=== PATIENT | male | born 1975 | race Caucasian/White ===

== ENCOUNTER 2018-10-27 00:39 | Emergency (ER) | payer SELFPAY ==
[~2018-10-27] VITALS: Ht 172.7 cm; Wt 139.6 kg
[~2018-10-27 00:39] MED LIST: ABILIFY10 MG PO; ALBUTEROL SUL0.083 % IN; AMOXICILLIN500 MG PO; AUGMENTIN875 MG PO; AUGMENTIN875TAB OR; AUGMENTIN875TAB PO; BACTRIM DS1 TAB PO; DIVALPROEX250 M1 PO; FLUOXETINE10 M2 PO; FLUOXETINE10 MG PO; FLUOXETINE20 MG PO; IBUPROFEN800 MG PO; LISINOPRIL10 MG PO; MECLIZINE25 MG PO; MEDDOSEPAK PO; MOTRIN800 MG PO; MOTRIN800 MG/TAB PO; NAPROSYN500 MG PO; NAPROXEN500 MG PO; NEXIUM40 M1 PO; NORCO1 TA1 PO; OMEPRAZOLE40 MG PO; PANTOPRAZOLE SO40 MG PO; PAROXETINE20 MG PO; PRILOSEC20 MG/CAP PO; PRILOSEC40 MG PO; PROAIR HFA IN; PROZAC20 MG PO; QVAR80 MCG IN; SERTRALINE100 MG PO; TRAZODONE50 MG PO; TRIAMCINOLON0.11 EX; WELLBUTRIN100 M1 PO; ZANTAC150 M1 PO; ZOFRAN ODT4 MG PO; ZYBAN150 MG OR
[2018-10-27] MEDS ORDERED: STERAPRED DS10 MG PO (01:08)
[2018-10-27] MEDS ORDERED: TRAMADOL HCL50 MG PO (01:09)
[2018-10-27 01:48] VITALS: BP 140/82
== END 2018-10-27 01:48 | disposition home or self-care (01) | DRG 558 ==
LOC: ED 00:39
DX: M65.832 Other synovitis and tenosynovitis, left forearm (principal); I10 Essential (primary) hypertension; F17.200 Nicotine dependence, unspecified, uncomplicated

== ENCOUNTER 2018-11-11 21:52 | Emergency (ER) | payer OTHER ==
[~2018-11-11] VITALS: Ht 172.7 cm; Wt 140.0 kg
[~2018-11-11 21:52] MED LIST changes: +STERAPRED DS10 MG PO; +TRAMADOL HCL50 MG PO
[2018-11-11] MEDS ORDERED: BUPROPION HCL300 MG PO (22:06)
[2018-11-11] MEDS ORDERED: LEVOTHYROXIN50 MCG PO (22:07)
[2018-11-11] MEDS ORDERED: LORAZEPAM0.5 MG PO (22:08)
[2018-11-11 23:16] LABS: HEMATOCRIT 41.7 % (39.0-50.0); IMMATURE GRANULOCYTES 1.3 % (0.0-5.0); MEAN CELL VOLUME 86.3 fL CALC (80.0-100.0); MEAN CORPUSCULAR HGB CONC 33.6 g/L CALC (32.0-36.0); NEUT# 4.95 thou/uL (1.82-7.42); RED BLOOD COUNT 4.83 mill/uL (4.70-6.10); RED CELL DISTRI WIDTH 14.3 % (11.5-15.5)
[2018-11-11 23:32] LABS: ALKALINE PHOSPHATASE 118 u/l (38-126); ANION GAP 13 (6-22 (CALC)); BILIRUBIN, TOTAL 0.5 mg/dL (0.0-1.4); BUN 9 mg/dL (9-20); BUN/CREATININE RATIO 10 (12-20 (CALC)); CARBON DIOXIDE 25 mmol/l (22-30); CHLORIDE 103 mmol/l (95-108); CREATININE 0.9 mg/dL (0.7-1.3); GFR > 60 ML/MIN (>=60 (CALC)); GFR FOR AFR.AMER. > 60 ML/MIN (>=60 (CALC)); POTASSIUM 4.3 mmol/l (3.5-5.1); SGOT/AST 72 u/l (17-59); SODIUM 137 mmol/l (137-146); TOTAL PROTEIN 7.1 g/dL (6.3-8.2)
[2018-11-12] MEDS ORDERED: AMOXICILLIN500 MG PO (00:17)
[2018-11-12] MEDS ORDERED: CLARITIN10 M1 PO (00:17)
[2018-11-12 00:38] VITALS: BP 149/69
== END 2018-11-12 00:37 | disposition home or self-care (01) ==
LOC: ED 21:52
PROVIDERS: Emergency Medicine
DX: J02.9 Acute pharyngitis, unspecified (principal); I10 Essential (primary) hypertension; F17.200 Nicotine dependence, unspecified, uncomplicated; R50.9 Fever, unspecified; R05 Cough

== ENCOUNTER 2019-02-19 23:06 | Emergency (ER) | payer BC ==
[~2019-02-19] VITALS: Ht 172.7 cm; Wt 150.9 kg
[~2019-02-19 23:06] MED LIST changes: +BUPROPION HCL300 MG PO; +CLARITIN10 M1 PO; +LEVOTHYROXIN50 MCG PO; +LORAZEPAM0.5 MG PO
[2019-02-20 00:18] LABS: HEMATOCRIT 43.4 % (39.0-50.0); HEMOGLOBIN 14.5 g/dl (14.0-18.0); IMMATURE GRANULOCYTES 0.7 % (0.0-5.0); MEAN CELL VOLUME 84.3 fL CALC (80.0-100.0); MEAN CORPUSCULAR HGB 28.2 pG CALC (26.0-32.0); MEAN CORPUSCULAR HGB CONC 33.4 g/L CALC (32.0-36.0); NEUT# 9.25 thou/uL (1.82-7.42); RED BLOOD COUNT 5.15 mill/uL (4.70-6.10); RED CELL DISTRI WIDTH 13.7 % (11.5-15.5)
[2019-02-20 00:20] LABS: ALBUMIN 4.3 g/dL (3.2-5.0); ALKALINE PHOSPHATASE 113 u/l (38-126); AMYLASE 47 u/l (30-110); ANION GAP 16 (6-22 (CALC)); BILIRUBIN, TOTAL 0.4 mg/dL (0.0-1.4); BUN 16 mg/dL (9-20); BUN/CREATININE RATIO 17 (12-20 (CALC)); CARBON DIOXIDE 24 mmol/l (22-30); CHLORIDE 103 mmol/l (95-108); GFR > 60 ML/MIN (>=60 (CALC)); GFR FOR AFR.AMER. > 60 ML/MIN (>=60 (CALC)); LIPASE 69 u/l (23-300); POTASSIUM 3.7 mmol/l (3.5-5.1); SGOT/AST 29 u/l (17-59); SODIUM 139 mmol/l (137-146); TOTAL PROTEIN 7.9 g/dL (6.3-8.2)
[2019-02-20 01:25] LABS: URINE BILIRUBIN - DIPSTICK NEGATIVE (NEGATIVE); URINE BLOOD DIPSTICK NEGATIVE (NEGATIVE); URINE COLOR YELLOW; URINE GLUCOSE - DIPSTICK NEGATIVE (NEGATIVE); URINE KETONE NEGATIVE (NEGATIVE); URINE LEUK ESTERASE NEGATIVE (NEGATIVE); URINE NITRITE - DIPSTICK NEGATIVE (Negative); URINE PH 5.5 (4.5-8.0); URINE PROTEIN - DIPSTICK NEGATIVE (NEG-TRACE); URINE UROBILINOGEN - DIPSTICK 0.2 E.U./dL (0.2)
[2019-02-20] MEDS ORDERED: ONDANSETRON4 MG PO (01:52)
[2019-02-20] MEDS ORDERED: BACTRIM DS1 TAB PO (01:52)
[2019-02-20] MEDS ORDERED: LOMOTIL2.5 MG PO (01:52)
[2019-02-20 02:15] VITALS: BP 149/68
== END 2019-02-20 02:15 | disposition home or self-care (01) | DRG 392 ==
LOC: ED 23:06
PROVIDERS: Emergency Medicine
DX: K52.9 Noninfective gastroenteritis and colitis, unspecified (principal); I10 Essential (primary) hypertension; F17.210 Nicotine dependence, cigarettes, uncomplicated

== ENCOUNTER 2019-09-12 | Emergency (ER) | payer OTHER ==
[~2019-09-12] MED LIST changes: +LOMOTIL2.5 MG PO; +ONDANSETRON4 MG PO
[2019-09-12] MEDS ORDERED: XANAX0.25 MG PO (22:23)
[2019-09-12] MEDS ORDERED: LAMOTRIGINE100 MG PO (22:24)
[2019-09-12] MEDS ORDERED: ALBUTEROL SUL0.083 % IN (22:25)
[2019-09-12] MEDS ORDERED: ARNUITY EL50 MCG/ACT NAB (22:26)
== END 2019-09-12 23:38 | disposition home or self-care (01) ==
DX: S93.402A Sprain of unspecified ligament of left ankle, initial encounter (principal); I10 Essential (primary) hypertension; F17.200 Nicotine dependence, unspecified, uncomplicated; X50.0XXA Overexertion from strenuous movement or load, initial encounter

== ENCOUNTER 2019-09-27 05:28 | Emergency (ER) | payer OTHER ==
[~2019-09-27 05:28] MED LIST changes: +ARNUITY EL50 MCG/ACT NAB; +LAMOTRIGINE100 MG PO; +XANAX0.25 MG PO
[2019-09-27 06:07] LABS: HEMATOCRIT 41.4 % (39.0-50.0); HEMOGLOBIN 13.8 g/dl (14.0-18.0); IMMATURE GRANULOCYTES 0.5 % (0.0-5.0); MEAN CELL VOLUME 86.8 fL CALC (80.0-100.0); MEAN CORPUSCULAR HGB 28.9 pG CALC (26.0-32.0); MEAN CORPUSCULAR HGB CONC 33.3 g/dL CAL (32.0-36.0); NEUT# 7.95 thou/uL (1.82-7.42); RED BLOOD COUNT 4.77 mill/uL (4.70-6.10); RED CELL DISTRI WIDTH 13.6 % (11.5-15.5)
[2019-09-27 06:22] LABS: ALBUMIN 3.8 g/dL (3.2-5.0); ALKALINE PHOSPHATASE 113 u/l (38-126); ANION GAP 11 (6-22 (CALC)); BILIRUBIN, TOTAL 0.3 mg/dL (0.0-1.4); BUN 9 mg/dL (9-20); BUN/CREATININE RATIO 10 (12-20 (CALC)); CARBON DIOXIDE 28 mmol/l (22-30); CHLORIDE 107 mmol/l (95-108); CREATININE 0.9 mg/dL (0.7-1.3); GFR > 60 ML/MIN (>=60 (CALC)); GFR FOR AFR.AMER. > 60 ML/MIN (>=60 (CALC)); POTASSIUM 4.4 mmol/l (3.5-5.1); SGOT/AST 25 u/l (17-59); SODIUM 142 mmol/l (137-146); TOTAL PROTEIN 7.2 g/dL (6.3-8.2)
[2019-09-27] MEDS ORDERED: BACTRIM DS1 TAB PO (06:49)
[2019-09-27] MEDS ORDERED: TRAMADOL HYDROC50 MG PO (06:51)
[2019-09-27] MEDS ORDERED: VOLTAREN - GENE75 MG PO (06:51)
[2019-09-27 07:25] VITALS: BP 132/55
== END 2019-09-27 07:25 | disposition home or self-care (01) ==
LOC: ED 05:28
PROVIDERS: Family Medicine
DX: S93.402A Sprain of unspecified ligament of left ankle, initial encounter (principal); L03.116 Cellulitis of left lower limb; I10 Essential (primary) hypertension; F17.200 Nicotine dependence, unspecified, uncomplicated; X50.0XXA Overexertion from strenuous movement or load, initial encounter

== ENCOUNTER 2020-12-26 23:05 | Emergency (ER) | payer OTHER ==
[~2020-12-26 23:05] MED LIST changes: +TRAMADOL HYDROC50 MG PO; +VOLTAREN - GENE75 MG PO
[2020-12-27] MEDS ORDERED: DOXYCYC MONO100 M2 PO (20:18)
== END 2020-12-26 23:56 | disposition left against medical advice (07) | DRG 951 ==
LOC: ED 23:05 → LWOBS 23:56
DX: Z53.21 Procedure and treatment not carried out due to patient leaving prior to being seen by health care provider (principal)

== ENCOUNTER 2020-12-27 17:01 | Emergency (ER) | payer OTHER ==
[~2020-12-27] VITALS: Ht 172.7 cm; Wt 120.1 kg
[2020-12-27 19:54] LABS: URINE BILIRUBIN - DIPSTICK NEGATIVE (NEGATIVE); URINE BLOOD DIPSTICK NEGATIVE (NEGATIVE); URINE COLOR YELLOW; URINE GLUCOSE - DIPSTICK NEGATIVE (NEGATIVE); URINE KETONE NEGATIVE (NEGATIVE); URINE LEUK ESTERASE NEGATIVE (NEGATIVE); URINE PH 5.5 (4.5-8.0); URINE PROTEIN - DIPSTICK NEGATIVE (NEG-TRACE); URINE SPECIFIC GRAVITY >=1.030; URINE UROBILINOGEN - DIPSTICK 0.2 E.U./dL (0.2)
[2020-12-27 19:55] LABS: URINE NITRITE - DIPSTICK NEGATIVE (Negative)
[2020-12-27] MEDS ORDERED: DOXYCYC MONO100 M2 PO (20:18)
[2020-12-27 20:57] VITALS: BP 155/93
== END 2020-12-27 21:06 | disposition home or self-care (01) ==
LOC: ED 17:01
PROVIDERS: Emergency Medicine
DX: Z20.2 Contact with and (suspected) exposure to infections with a predominantly sexual mode of transmission (principal); I10 Essential (primary) hypertension; K21.9 Gastro-esophageal reflux disease without esophagitis; F41.9 Anxiety disorder, unspecified; F17.200 Nicotine dependence, unspecified, uncomplicated

== ENCOUNTER 2021-02-13 23:48 | Emergency (ER) | payer OTHER ==
[~2021-02-13] VITALS: Ht 172.7 cm; Wt 132.0 kg
[~2021-02-13 23:48] MED LIST changes: +DOXYCYC MONO100 M2 PO
[2021-02-14] MEDS ORDERED: BUPROPION150 M3 PO (00:25)
[2021-02-14] MEDS ORDERED: LAMICTAL200 M1 PO (00:26)
[2021-02-14] MEDS ORDERED: ALPRAZOLAM0.25 M1 PO (00:27)
[2021-02-14] MEDS ORDERED: CIPROFLOXACN500 MG PO (00:29)
[2021-02-14 01:25] VITALS: BP 138/70
== END 2021-02-14 01:25 | disposition home or self-care (01) ==
LOC: ED 23:48
DX: S93.401A Sprain of unspecified ligament of right ankle, initial encounter (principal); S93.601A Unspecified sprain of right foot, initial encounter; S80.812A Abrasion, left lower leg, initial encounter; I10 Essential (primary) hypertension; F41.9 Anxiety disorder, unspecified; K21.9 Gastro-esophageal reflux disease without esophagitis; F17.200 Nicotine dependence, unspecified, uncomplicated; W13.3XXA Fall through floor, initial encounter; Y92.009 Unspecified place in unspecified non-institutional (private) residence as the place of occurrence of the external cause

== ENCOUNTER 2022-04-24 05:14 | Emergency (ER) | payer OTHER ==
[~2022-04-24] VITALS: Ht 172.7 cm; Wt 133.6 kg
[2022-04-24] VITALS (8 sets, daily range): BP systolic 124–149; BP diastolic 73–89
[~2022-04-24 05:14] MED LIST changes: +ALPRAZOLAM0.25 M1 PO; +BUPROPION150 M3 PO; +CIPROFLOXACN500 MG PO; +LAMICTAL200 M1 PO
[2022-04-24 06:11] LABS: HEMATOCRIT 44.5 % (39.0-50.0); HEMOGLOBIN 14.8 g/dl (14.0-18.0); IMMATURE GRANULOCYTES 1.1 % (0.0-5.0); MEAN CELL VOLUME 88.3 fL CALC (80.0-100.0); MEAN CORPUSCULAR HGB 29.4 pG CALC (26.0-32.0); MEAN CORPUSCULAR HGB CONC 33.3 g/dL CAL (32.0-36.0); NEUT# 10.73 thou/uL (1.82-7.42); RED BLOOD COUNT 5.04 mill/uL (4.70-6.10); RED CELL DISTRI WIDTH 13.8 % (11.5-15.5)
[2022-04-24 06:23] LABS: ALKALINE PHOSPHATASE 132 u/l (38-126); AMYLASE 61 u/l (30-110); ANION GAP 11 (6-22 (CALC)); BILIRUBIN, TOTAL 0.4 mg/dL (0.0-1.4); BUN 12 mg/dL (9-20); BUN/CREATININE RATIO 12 (12-20 (CALC)); CARBON DIOXIDE 27 mmol/l (22-30); CHLORIDE 107 mmol/l (95-108); CREATININE 1.1 mg/dL (0.7-1.3); GFR FOR AFR.AMER. > 60 ML/MIN (>=60 (CALC)); GFR OTHER RACES > 60 ML/MIN (>=60 (CALC)); LIPASE 82 u/l (23-300); POTASSIUM 4.6 mmol/l (3.5-5.1); SGOT/AST 27 u/l (17-59); SODIUM 140 mmol/l (137-146); TOTAL PROTEIN 7.2 g/dL (6.3-8.2)
[2022-04-24 07:37] LABS: URINE BILIRUBIN - DIPSTICK NEGATIVE (NEGATIVE); URINE BLOOD DIPSTICK NEGATIVE (NEGATIVE); URINE COLOR YELLOW; URINE GLUCOSE - DIPSTICK NEGATIVE (NEGATIVE); URINE KETONE NEGATIVE (NEGATIVE); URINE LEUK ESTERASE NEGATIVE (NEGATIVE); URINE PH 6.5 (4.5-8.0); URINE PROTEIN - DIPSTICK NEGATIVE (NEG-TRACE); URINE SPECIFIC GRAVITY <=1.005; URINE UROBILINOGEN - DIPSTICK 0.2 E.U./dL (0.2)
[2022-04-24 07:39] LABS: URINE NITRITE - DIPSTICK NEGATIVE (Negative)
[2022-04-24] MEDS ORDERED: PREVACID30 M1 PO (08:25)
[2022-04-24] MEDS ORDERED: ONDANSETRON4 MG PO (08:26)
== END 2022-04-24 09:13 | disposition home or self-care (01) ==
LOC: ED 05:14
PROVIDERS: Family Medicine
DX: K29.70 Gastritis, unspecified, without bleeding (principal); I10 Essential (primary) hypertension; K21.9 Gastro-esophageal reflux disease without esophagitis; F41.9 Anxiety disorder, unspecified; F17.200 Nicotine dependence, unspecified, uncomplicated
CPT/HCPCS: Q9967; S0164